=== PATIENT | female | born 1995 | race African-American/Black ===

== ENCOUNTER 2018-04-29 01:00 | Observation (INO) | payer MEDICAID ==
[2018-04-29 01:44] LABS: BILIRUBIN,URINE NEGATIVE (NEG); CLARITY,URINE CLEAR; COLOR,URINE YELLOW; GLUCOSE,URINE NEGATIVE (NEG); NITRITE,URINE NEGATIVE (NEG); PROTEIN,URINE NEGATIVE (NEG-TRACE); UROBILINOGEN,URINE 0.2 mg/dL (0.2 mg/dL)
[2018-04-29 01:50] LABS: BARBITURATES NEG (NEG); BENZODIAZEPINES NEG (NEG); CANNABINOIDS NEG (NEG); COCAINE NEG (NEG); METHADONE NEG (NEG); OPIATES NEG (NEG); PHENCYCLIDINE NEG (NEG)
[2018-04-29 01:54] LABS: BACTERIA,URINE FEW /HPF (0-FEW); RBC,URINE 0 /HPF (0-2); SQUAMOUS EPITHELIAL CELL,UR FEW /LPF; WBC,URINE OCC /HPF (0-4)
[2018-04-29 01:57] LABS: AMPHETAMINE/METHAMPHETAMINE NEG (NEG); ETHANOL, URINE NEG (NEG)
[2018-04-29] MEDS ORDERED: IV RINGERS,LACTATED 1000ML 1,000 ML IV (02:00)
== END 2018-04-29 03:05 | disposition home or self-care (01) ==
LOC: 3 SO LND 01:00
DX: O62.9 Abnormality of forces of labor, unspecified (principal); Z3A.39 39 weeks gestation of pregnancy; Z79.899 Other long term (current) drug therapy
CPT/HCPCS: 80307; 81001; G0378; G0379

== ENCOUNTER 2018-04-29 05:52 | Inpatient (IN) | payer MEDICAID ==
[2018-04-29] MEDS ORDERED: fentaNYL PF VIAL 100 MCG/2 ML VIAL (05:54)
[2018-04-29 06:11] LABS: ADD MAN DIFF? NO
[2018-04-29 06:13] LABS: BASO % 0 % (0-3); EOS # 0.4 x10^3/uL (0.0-0.7); EOS % 4 % (0-3); HEMATOCRIT 36.7 % (36.0-47.0); HEMOGLOBIN 11.9 g/dL (12.0-15.5); LYMPH # 4.2 x10^3/uL (1.0-4.8); LYMPH % 40 % (24-48); MEAN CORPUSCULAR HEMOGLOBIN 28 pg (25-35); MEAN CORPUSCULAR HGB CONC 33 g/dL (31-37); MEAN CORPUSCULAR VOLUME 86 fL (79-100); MONO # 0.8 x10^3/uL (0.0-1.1); MONO % 8 % (0-9); NEUT # 4.9 x10^3uL (1.8-7.7); NEUT % 48 % (31-73); PLATELET COUNT 152 x10^3/uL (140-400); RED BLOOD COUNT 4.25 x10^6/uL (3.50-5.40); RED CELL DISTRIBUTION WIDTH 15.2 % (11.5-14.5); WHITE BLOOD COUNT 10.3 x10^3/uL (4.0-11.0)
[2018-04-29 06:28] LABS: ANION GAP 12 (6-14); BLOOD UREA NITROGEN 11 mg/dL (7-20); BUN/CREATININE RATIO 14 (6-20); CALCIUM 8.6 mg/dL (8.5-10.1); CARBON DIOXIDE 24 mmol/L (21-32); CHLORIDE 101 mmol/L (98-107); CREATININE 0.8 mg/dL (0.6-1.0); GFR 107.6; GLUCOSE 84 mg/dL (70-99); POTASSIUM 3.8 mmol/L (3.5-5.1); SODIUM 137 mmol/L (136-145)
[2018-04-29 06:33] LABS: ALBUMIN/GLOBULIN RATIO 0.6 (1.0-1.7); ALK PHOS 283 U/L (46-116); ALT (SGPT) 14 U/L (14-59); AST (SGOT) 20 U/L (15-37); TOTAL BILIRUBIN 0.2 mg/dL (0.2-1.0)
[2018-04-29] MEDS ORDERED: IV RINGERS,LACTATED 1000ML 1,000 ML IV (06:48)
[2018-04-29 06:54] LABS: PROTHROMBIN TIME PATIENT 12.2 SEC (11.7-14.0)
[2018-04-29] MEDS ORDERED: 0.9 % SODIUM CHLORIDE 10 ML DISP.SYRIN. IV ×3 (07:00→23:30)
[2018-04-29] MEDS ORDERED: ACETAMINOPHEN 325 MG TABLET. PO ×2 (07:00→23:30)
[2018-04-29] MEDS ORDERED: ZOLPIDEM 5 MG TABLET. PO ×2 (07:00→23:30)
[2018-04-29] MEDS ORDERED: OXYTOCIN 30 UNIT/500 ML PREMIX 500 ML IV ×3 (07:00→23:30)
[2018-04-29] MEDS ORDERED: PHENYLEPH/MINERAL OIL/PETROLAT RECTAL OINTMENT 28GM TUBE. RC ×2 (07:00→23:30)
[2018-04-29] MEDS ORDERED: oxyCODONE/APAP 5/325 1 TAB TABLET PO (07:00)
[2018-04-29] MEDS ORDERED: MMR per PROTOCOL. MC (07:00)
[2018-04-29] MEDS ORDERED: MAG HYDROX/ALUMINUM HYD/SIMETH 30 ML ORAL.SUSP PO (07:00)
[2018-04-29] MEDS ORDERED: BENZOCAINE 20% TOPICAL AEROSOL SPRAY 57GM CAN. TP ×2 (07:00→23:30)
[2018-04-29] MEDS ORDERED: IBUPROFEN 800 MG TABLET. PO (07:00)
[2018-04-29] MEDS ORDERED: HYDROCORTISONE 1% TOPICAL OINTMENT 30GM TUBE. TP ×2 (07:00→23:30)
[2018-04-29] MEDS ORDERED: MAGNESIUM HYDROXIDE 2,400 MG/30 ML ORAL.SUSP. PO ×2 (07:00→23:30)
[2018-04-29] MEDS ORDERED: SIMETHICONE 80 MG TAB.CHEW PO ×2 (07:00→23:30)
[2018-04-29] MEDS ORDERED: diphenhydrAMINE HCL 25 MG CAPSULE PO ×2 (07:00→23:30)
[2018-04-29] MEDS: IBUPROFEN 800 MG TABLET. PO ×2 (07:03→19:54)
[2018-04-29] MEDS: DOCUSATE SODIUM 100 MG CAPSULE. PO (08:53)
[2018-04-29] MEDS: oxyCODONE/APAP 5/325 1 TAB TABLET PO (08:53)
[2018-04-29 11:41] LABS: HEPATITIS B SURFACE AG Nonreactive (Nonreactive)
[2018-04-30] MEDS: DOCUSATE SODIUM 100 MG CAPSULE. PO ×2 (03:02→12:04)
[2018-04-30] MEDS: IBUPROFEN 800 MG TABLET. PO ×2 (03:08→12:04)
[2018-04-30 06:58] LABS: HEMATOCRIT 32.4 % (36.0-47.0)
[2018-04-30] MEDS ORDERED: FERROUS SULFATE 325 MG TABLET. PO ×2 (08:00)
[2018-04-30] MEDS: MAG HYDROX/ALUMINUM HYD/SIMETH 30 ML ORAL.SUSP PO (12:04)
[2018-04-30] MEDS: oxyCODONE/APAP 5/325 1 TAB TABLET PO ×2 (13:38→21:31)
[2018-05-01] MEDS: IBUPROFEN 800 MG TABLET. PO (05:12)
[2018-05-01] MEDS: oxyCODONE/APAP 5/325 1 TAB TABLET PO ×2 (05:12→08:14)
[2018-05-01] MEDS: DOCUSATE SODIUM 100 MG CAPSULE. PO (08:14)
[2018-05-01 13:15] LABS: HIV AB SCREEN Nonreactive (Nonreactive)
[2018-05-02 06:20] LABS: RUBELLA IGG ANTIBODY 1.22 index (Immune >0.99)
== END 2018-05-01 18:10 | disposition home or self-care (01) | DRG 775 ==
LOC: ER 05:52 → 3 SO LND 06:11 → 3 NORTH 08:30 → 3 SO LND 21:44
PROC: 10E0XZZ Delivery of Products of Conception, External Approach (ICD-10-PCS; principal; 2018-05-01)
DX: O62.3 Precipitate labor (principal); Z37.0 Single live birth; Z3A.39 39 weeks gestation of pregnancy
CPT/HCPCS: 36415; 80053; 85014; 85025; 85610; 86592; 86703; 86762; 86850; 86900; 86901; 87340; 99285-25